=== PATIENT | female | born 1990 | race Caucasian/White ===

== ENCOUNTER → 2022-06-04 | Outpatient (CLI) | payer BC, SELFPAY | END | disposition home or self-care (01) | PROVIDERS: Visit Provider Physician Assistant | DX: J02.9 Acute pharyngitis, unspecified (principal) | CPT/HCPCS: 87070; 87077 ==

== ENCOUNTER → 2022-06-12 | Outpatient (CLI) | payer BC, SELFPAY ==
--- NOTE | 2022-06-12 13:00 | MRI_ITS ---
STUDY: MRI LEFT KNEE REASON FOR EXAM: Female, 32 years old. Fall last summer. Catching and popping in knee. TECHNIQUE: Standardized fat and water weighted pulse sequences were obtained in all 3 orthogonal planes. COMPARISON: None. FINDINGS: Normal medial meniscus. Normal hyaline cartilage of the medial femorotibial compartment. Normal medial femoral condyle and tibial plateau. Normal medial collateral ligamentous complex (MCL). Normal distal semimembranosus, gracilis and semitendinosus tendons. Normal lateral meniscus. Normal hyaline cartilage of the lateral femorotibial compartment. Normal lateral femoral condyle and tibial plateau. Normal proximal tibiofibular articulation. Normal lateral collateral (fibular) ligament. Normal popliteus tendon. Normal biceps femoris tendon. Normal anterior cruciate ligament (ACL). Normal posterior cruciate ligament (PCL). Normal congruent patellofemoral articulation. Normal hyaline cartilage of the patellofemoral compartment. Normal medial and lateral patellar retinaculum. Normal quadriceps tendon. Normal patellar tendon. Normal Hoffa''s fat pad. Deep infrapatellar bursitis (sagittal series 4 image 11). Small joint effusion with medial plica (axial series 2 images 10-14 Superficial prepatellar skin defect which may be postsurgical or posttraumatic (sagittal series 4 images 10 and 13). The otherwise visualized osseous structures are unremarkable. MRI/Lower Ext Joint Only (Routine) IMPRESSION: Deep infrapatellar bursitis Small joint effusion with medial plica. Deep infrapatellar bursitis. Superficial abnormality in the prepatellar soft tissues which may be secondary to trauma or surgery. No meniscal or ligamentous pathology. Electronically Signed: Mitchell Solorio, at 15:52 EDT ,
== END | disposition home or self-care (01) ==
PROVIDERS: PCP Family Medicine; Referring Provider Student in an Organized Health Care Education/Training Program; Visit Provider Student in an Organized Health Care Education/Training Program
DX: S83.8X2A Sprain of other specified parts of left knee, initial encounter (principal)
CPT/HCPCS: 73721

== ENCOUNTER → 2023-03-11 | Outpatient (CLI) | payer BC, SELFPAY ==
--- OUTSIDE RECORDS SUMMARY | 2023-03-11 07:04 | XMS RPT_ITS | CCD ---
Author Name Unknown Address [address] [place] [address] Organization [facility] Care Team Providers Care [employer] Driver Name Role Phone Kalli Gilmore Primary Care Provider [phone] John RIVERS, Gricelda S Primary Care Provider John RIVERS, Gricelda S Primary Care Provider John RIVERS, Gricelda S Primary Care Provider JOHN, GRICELDA Primary Care Unavailable JOHN, GRICELDA Attending Unavailable JOHN, GRICELDA Referring Unavailable LILO TORREZ Attending Unavailable JOHN, GRICELDA Primary Care Unavailable JOHN, GRICELDA Attending Unavailable JOHN, GRICELDA Primary Care Unavailable JOHN, GRICELDA Referring Unavailable JOHN, GRICELDA Attending Unavailable JOHN, GRICELDA Primary Care Unavailable JOHN, GRICELDA Referring Unavailable JOHN, GRICELDA Attending Unavailable JOHN, GRICELDA Referring Unavailable JOHN, GRICELDA Attending Unavailable JOHN, GRICELDA Referring Unavailable JOHN, GRICELDA Attending Unavailable JOHN, GRICELDA Admitting Unavailable JOHN, GRICELDA Primary Care Unavailable JOHN, GRICELDA Referring Unavailable MADAN AGUIAR Attending Unavailable JOHN, GRICELDA Referring Unavailable JOHN, GRICELDA Referring Unavailable JOHN, GRICELDA Referring Unavailable JOHN, GRICELDA Attending Unavailable JOHN, GRICELDA Referring Unavailable JOHN, GRICELDA Referring Unavailable JOHN, GRICELDA Referring Unavailable JOHN, GRICELDA Attending Unavailable JOHN, GRICELDA Referring Unavailable JOHN, GRICELDA Referring Unavailable JOHN, GRICELDA Referring Unavailable JOHN, GRICELDA Referring Unavailable JOHN, GRICELDA Primary Care Unavailable JONH, GRICELDA Referring Unavailable JOHN, GRICELDA Attending Unavailable JOHN, GRICELDA Primary Care Unavailable JOHN, GRICELDA Referring Unavailable JOHN, GRICELDA Attending Unavailable JOHN, GRICELDA Primary Care Unavailable JOHN, GRICELDA Referring Unavailable JOHN, GRICELDA Attending Unavailable GRICELDA LOPEZ Referring Unavailable GRICELDA LOPEZ Referring Unavailable LILO TORREZ Attending Unavailable Gricelda Lopez MD Primary Care Provider [phone] Allergies Allergy Classification Reported Allergen(s) Allergy Type Date of Onset Reaction(s) Facility Cetirizine (1 source) Cetirizine Drug Allergy 0 [facility] Work Phone: Corticosteroids (1 source) Beclomethasone Drug Allergy 9 [facility] Work Phone: (4 sources) Seasonal allergy Propensity to adverse reactions to substance 9 [place] (7 sources) Beclomethasone Drug Allergy 9 [place] (12 sources) Cetirizine Drug Allergy 0 [place] (11 sources) Other Propensity to adverse reactions 9 [facility] Medications Current Medications Medication Drug Class(es) Dates Sig (Normalized) Sig (Original) [id number] 200 actuat albuterol 0.09 mg/actuat metered dose inhaler (20 sources) beta2-Adrenergic Agonist Start: 08-08-2022 End: 10-27-2023 take 2 puff(s) by inhalation every four hours as needed for wheezing albuterol 108 (90 Base) MCG/ACT inhaler Indications: Moderate persistent asthma without complication Inhale 2 puffs every 4 hours as needed for wheezing. 18 g 1 10/27/2022 10/27/2023 Active Problems Active Problems Problem Classification Problem Date Documented Date Episodic/Chronic Acute and chronic tonsillitis (4 sources) Chronic tonsillitis; Translations: [Chronic tonsillitis] Onset: 08-26-2022 08-25-2022 Chronic Asthma (20 sources) Uncomplicated moderate persistent asthma; Translations: [Moderate persistent asthma, uncomplicated] Onset: 08-30-2020 08-30-2020 Chronic Conduction disorders (1 source) Right bundle branch block; Translations: [RBBB] Chronic Headache; including migraine (4 sources) Refractory migraine with aura; Translations: [Persistent migraine aura without cerebral infarction, intractable, without status migrainosus] Onset: 08-26-2022 08-26-2022 Chronic Heart valve disorders (20 sources) Mitral valve prolapse; Translations: [Mitral valve regurgitation] Onset: 08-30-2020 Resolved: 10-04-2014 10-04-2014 Chronic Mycoses (3 sources) Candidal stomatitis; Translations: [Candidiasis of mouth] Onset: 01-09-2022 Episodic Nausea and vomiting (1 source) Nausea; Translations: [Nausea] Episodic Other upper respiratory disease (12 sources) Seasonal allergy; Translations: [Other seasonal allergic rhinitis] Onset: 08-30-2020 08-30-2020 Chronic Spondylosis; intervertebral disc disorders; other back problems (1 source) Chronic low back pain; Translations: [Lumbago with sciatica, left side] Episodic Unclassified (2 sources) PT Treatment; Translations: [PT Treatment] Onset: 03-14-2022 Past or Other Problems Problem Classification Problem Date Documented Date Episodic/Chronic Acute and chronic tonsillitis (5 sources) Acute tonsillitis; Translations: [Acute tonsillitis, unspecified] Onset: 06-19-2022 Episodic Cardiac dysrhythmias (1 source) Palpitations; Translations: [Palpitation] Episodic Nonspecific chest pain (3 sources) Tight chest; Translations: [Tightness in chest] Episodic Other connective tissue disease (11 sources) Cramp in lower limb; Translations: [Cramp and spasm] Onset: 10-25-2021 12-14-2021 Episodic Other infections; including parasitic (1 source) H/O: viral illness; Translations: [History of 2019 novel coronavirus disease (COVID-19)] Episodic Other lower respiratory disease (2 sources) Dyspnea; Translations: [SOB (shortness of breath)] Episodic Other lower respiratory disease (2 sources) Dyspnea on exertion; Translations: [PEPE (dyspnea on exertion)] Episodic Other lower respiratory disease (1 source) Wheezing; Translations: [Wheezing] Episodic Other non-traumatic joint disorders (13 sources) Pain in left knee; Translations: [Pain in joint, lower leg] Onset: 04-03-2022 04-04-2022 Episodic Other screening for suspected conditions (not mental disorders or infectious disease) (1 source) Electrocardiogram abnormal; Translations: [Abnormal EKG] Episodic Results Test Name Value Interpretation Reference Range Facil ity Vital Signs Date Time Vital Sign Value Performing Clinician Faci lity 09-04-2022 10:23-0400 Body height 178.4 cm Gricelda Lopez MD Work Phone: [facility] 09-04-2022 10:23-0400 Body mass index (BMI) [Ratio] 30.57 kg/m2 Gricelda Lopez MD Work Phone: [facility] 09-04-2022 10:23-0400 Body temperature 98.6 [degF] Gricelda Lopez MD Work Phone: [facility] 09-04-2022 10:23-0400 Body weight 97.34 kg Gricelda Lopez MD Work Phone: [facility] 09-04-2022 10:23-0400 Diastolic blood pressure 87 mm[Hg] Gricelda Lopez MD Work Phone: [facility] 09-04-2022 10:23-0400 Heart rate 80 /min Gricelda oLpez MD Work Phone: [facility] 09-04-2022 10:23-0400 SaO2% (BldA) [Mass fraction] 97 % Gricelda Lopez MD Work Phone: [facility] 09-04-2022 10:23-0400 Systolic blood pressure 124 mm[Hg] Gricelda Dillon Work Phone: [facility] 08-26-2022 08:19-0400 Body height 180.3 cm Madan Aguiar MD Work Phone: [facility] 08-26-2022 08:19-0400 Body mass index (BMI) [Ratio] 29.57 kg/m2 Madan Aguiar MD Work Phone: [facility] 08-26-2022 08:19-0400 Body weight 96.16 kg Madan Aguiar MD Work Phone: [facility] 06-19-2022 14:14-0400 Body height 180.3 cm Gricelda Lopez MD Work Phone: [facility] 06-19-2022 14:14-0400 Body mass index (BMI) [Ratio] 28.87 kg/m2 Gricelda Lopez MD Work Phone: [facility] 06-19-2022 14:14-0400 Body temperature 98.4 [degF] Gricelda Lopez MD Work Phone: [facility] 06-19-2022 14:14-0400 Body weight 93.89 kg Gricelda Lopez MD Work Phone: [facility] 06-19-2022 14:14-0400 Diastolic blood pressure 83 mm[Hg] Gricelda Lopez MD Work Phone: [facility] 06-19-2022 14:14-0400 Heart rate 88 /min Gricelda Lopez MD Work Phone: [facility] 06-19-2022 14:14-0400 SaO2% (BldA) [Mass fraction] 97 % Gricelda Lopez MD Work Phone: [facility] 06-19-2022 14:14-0400 Systolic blood pressure 120 mm[Hg] Gricelda Dillon Work Phone: [facility] Encounters Encounter Date Encounter Type Care Provider Facility Start: 02-18-2023 Orders Only Gricelad Rodriguez on Work Phone: [facility] Procedures Date Procedure Procedure Detail Performing Clinician Start: 09-04-2022 Microscopic observat ion [Identifier] in Cervix by Cyto stain Gay iRng MA Start: 09-26-2019 Ct thorax w/o contra st material Cecily Bradley Work Phone: Start: 01-19-2019 Echo tthrc r-t 2d w/wom-mode compl spec&colr d Kalli Gilmore Work Phone: Start: 11-08-2018 Radiologic exam ches t 2 views eCcily Bradley Work Phone: Plan of Treatment Date Care Activity Detail Author Start: 2057 Pneumococcal 0-64 years Vaccine (2 of 2 - PPSV23) Pneumococcal 0-64 years Vaccine (2 of 2 - PPSV23) [facility] Work Phone: Start: 2052 RSV Immunization aged 60 or older (1 - 1-dose 60+ series) RSV Immunization aged 60 or older (1 - 1-dose 60+ series) [facility] Start: 2042 Zoster Vaccines (1 of 2) Zoster Vaccines (1 of 2) [facility] Start: 10-14-2027 DTaP/Tdap/Td vaccine (9 - Td or Tdap) DTaP/Tdap/Td vaccine (9 - Td or Tdap) [facility] Work Phone: Start: 10-14-2027 DTaP/Tdap/Td vaccine (9 - Td) DTaP/Tdap/Td vaccine (9 - Td) [place] Start: 10-14-2027 DTaP/Tdap/Td Vaccines (9 - Td or Tdap) DTaP/Tdap/Td Vaccines (9 - Td or Tdap) [facility] Start: 09-04-2025 Screening for malignant neoplasm of cervix [facility] Start: 09-10-2023 End: 09-10-2023 Patient encounter procedure [facility] Start: 10-31-2022 COVID-19 Vaccine ( season) COVID-19 Vaccine ( season) [facility] Start: 10-31-2022 Influenza vaccination Influenza Vaccine (#1) [facility] Start: 09-04-2022 End: 09-05-2023 CHLAMYDIA/N.GONORRHOEAE AND T. VAGINALIS RNA, QL TMA ([facility]) Chlamydia/N.Gonorrhoeae and T. Vaginalis RNA, QL TMA ([facility]) Microbiology Routine Cervical smear, as part of routine gynecological examination Expected: 09/04/2022 (Approximate), Expires: 09/05/2023 [facility] Immunizations Immunization Date Immunization Notes Care Provider [facility] 12-02-2021 influenza, seasonal, injectable Gricelda Lopez MD Work Phone: [facility] 12-02-2021 influenza virus vacc ine, unspecified formulation Gricelda Lopez MD Work Phone: [facility] 11-27-2020 influenza virus vacc ine, unspecified formulation Gricelda Lopez MD Work Phone: [facility] 11-27-2020 influenza, seasonal, injectable, preservative free Gricelda Lopez MD Work Phone: [facility] 08-30-2020 pneumococcal polysaccharide vaccine, 23 valent Silvadavid Wilder RATE CLERK - PETROGRAPHY TEACHER Work Phone: [facility] 2020 COVID-19, Moderna, P F, 100mcg/0.5mL Silva Lalley RATE CLERK - PETROGRAPHY TEACHER Work Phone: [facility] Work Phone: 02-29-2020 COVID-19, Moderna, P F, 100mcg/0.5mL Silva Yumilley RATE CLERK - PETROGRAPHY TEACHER Work Phone: [facility] Work Phone: 12-20-2019 influenza virus vacc ine, unspecified formulation Gricelda Lopez MD Work Phone: [facility] 11-23-2018 influenza, injectabl e, quadrivalent, preservative free Kalli Hindsnz [facility] 12-28-2017 influenza virus vacc ine, unspecified formulation [facility], [place] 12-28-2017 influenza, injectabl e, quadrivalent, preservative free Gricelda Lopez MD Work Phone: [facility] 10-13-2017 poliovirus vaccine, inactivated [facility], [place] 10-13-2017 tetanus toxoid, redu altagracia diphtheria toxoid, and acellular pertussis vaccine, adsorbed [facility] 11-13-2016 Influenza Vaccine, unspecified formulation [facility], [place] 11-13-2016 influenza virus vacc ine, unspecified formulation Gricelda Lopez MD Work Phone: [facility] 11-13-2016 influenza, seasonal, injectable Gricelda Lopez MD Work Phone: [facility] 12-15-2009 HPV, unspecified formulation [facility] 12-15-2009 meningococcal polysaccharide (groups A, C, Y and W-135) diphtheria toxoid conjugate vaccine (MCV4P) [facility] 03-06-2009 novel influenza-H1N1 -09, preservative-free, injectable Gricelda Lopez MD Work Phone: [facility] 06-10-2008 HPV, unspecified formulation [facility] 04-12-2008 HPV, unspecified formulation [facility] 04-12-2008 varicella virus vaccine [facility], [place] 10-12-2007 meningococcal polysaccharide (groups A, C, Y and W-135) diphtheria toxoid conjugate vaccine (MCV4P) [facility] 10-12-2007 tetanus toxoid, redu altagracia diphtheria toxoid, and acellular pertussis vaccine, adsorbed [facility], [place] 04-28-2005 hepatitis B vaccine, adult dosage Gricelda Lopez MD Work Phone: [facility] 04-28-2005 hepatitis B vaccine, pediatric or pediatric/adolescent dosage Gricelda Lopez MD Work Phone: [facility] 04-28-2005 hepatitis B vaccine, unspecified formulation [facility] 04-28-2005 tetanus toxoid, redu altagracia diphtheria toxoid, and acellular pertussis vaccine, adsorbed Gricelda Lopez MD Work Phone: [facility] 11-11-2004 hepatitis B vaccine, adult dosage Gricelda Lopez MD Work Phone: [facility] 11-11-2004 hepatitis B vaccine, pediatric or pediatric/adolescent dosage Gricelda Lopez MD Work Phone: [facility] 11-11-2004 hepatitis B vaccine, unspecified formulation [facility] 09-16-2004 hepatitis B vaccine, adult dosage Gricelda Lopez MD Work Phone: [facility] 09-16-2004 hepatitis B vaccine, pediatric or pediatric/adolescent dosage Gricelda Lopez MD Work Phone: [facility] 09-16-2004 hepatitis B vaccine, unspecified formulation [facility] 10-18-1997 diphtheria, tetanus toxoids and acellular pertussis vaccine [facility] 10-18-1997 measles, mumps and rubella virus vaccine [facility] 10-18-1997 poliovirus vaccine, inactivated [facility] 03-23-1996 varicella virus vaccine [facility] 06-25-1993 diphtheria, tetanus toxoids and acellular pertussis vaccine [facility], [place] 06-25-1993 haemophilus influenz ae type b vaccine, conjugate unspecified formulation Gricelda Lopez MD Work Phone: [facility] 06-25-1993 Hib, unspecified [facility] 06-25-1993 measles, mumps and rubella virus vaccine [facility] 06-25-1993 poliovirus vaccine, inactivated [facility], [place] 1992 diphtheria, tetanus toxoids and acellular pertussis vaccine [facility], [place] 1992 haemophilus influenz ae type b vaccine, conjugate unspecified formulation Gricelda Lopez MD Work Phone: [facility] 1992 Hib, unspecified [facility], [place] 1992 diphtheria, tetanus toxoids and acellular pertussis vaccine [facility], [place] 1992 haemophilus influenz ae type b vaccine, conjugate unspecified formulation Gricelda Lopez MD Work Phone: [facility] 1992 Hib, unspecified [facility], [place] 1992 poliovirus vaccine, inactivated [facility], [place] 1992 diphtheria, tetanus toxoids and acellular pertussis vaccine Cecily [place], [place] 1992 haemophilus influenz ae type b vaccine, conjugate unspecified formulation Gricelda Lopez MD Work Phone: [facility] 1992 Hib, unspecified Cecily [place], [place] 1992 poliovirus vaccine, inactivated [facility] [place] Payers Date Payer Category Payer Unknown [employer] [id number] 2018-Present [address] [place] [address] Commercial [id number] 2016 Unknown BCBS BC[place] - [place] P PO xxxxxxxxxxxx 2016-Present [address] [place] [address] xxxxxxxxxxxx [id number] 2016 Unknown BC[place] P PO [id number] 2016-Present [address] [place] [address] [id number] 2016 Unknown [id number] Social History Date Type Detail Facility Start: 11-08-2018 End: 06-19-2022 Tobacco smoking status NHIS Former smoker [place] End: 03-02-2015 History of tobacco use Current smoker [place] End: 03-02-2015 History of tobacco use Cigarette Smoker [place] Start: 11-08-2018 End: 09-04-2022 Alcohol intake Yes [place] Start: 12-16-2016 Tobacco Comment Occasional cig arette for less than 1 year [place] Start: 12-16-2016 Alcohol Comment 6-8 drinks per month [facility] Start: 1990 Sex Assigned At Female [facility] Start: 01-20-2019 End: 06-19-2022 Tobacco use and exposure Never used [facility] Start: 01-20-2019 End: 09-04-2022 Alcohol intake Current drinker of alcohol (finding) [facility] Exposure to SARS-CoV -2 (event) Yes [facility] Start: 08-30-2020 End: 09-04-2022 Alcohol intake [facility] Work Phone: Start: 06-09-2022 End: 06-19-2022 Exposure to SARS-CoV-2 (event) Not sure [facility] History of tobacco use Passive smoker [facility] Start: 12-19-2021 Gender identity Identifies as female gender (finding) [facility] Start: 12-19-2021 Sexual orientation Choose not to dis close [facility] Within the last year , have you been afraid of your partner or ex-partner? Patient refused [facility] Are you now , , , , never or living with a partner? [facility] How often to you hav e a drink containing alcohol? 2-4 times a month [facility] How many standard dr inks containing alcohol do you have on a typical day? 1 or 2 [facility] How often do you hav e 6 or more drinks on 1 occasion? Never [facility] How hard is it for y ou to pay for the very basics like food, housing, medical care, and heating Not very hard [facility] Do you feel stress - tense, restless, nervous, or anxious, or unable to sleep at night because your mind is troubled all the time - these days [OSQ] Only a little [facility] (I/We) worried wheth er (my/our) food would run out before (I/we) got money to buy more. Never true [facility] In the past 12 month s, was there a time when you were not able to pay the mortgage or rent on time? No [facility] Start: 09-04-2022 Alcohol Comment occasional [facility] Clinical Notes 06-19-2022 to 10-15-2022 Telephone Encounter - Adeline Gregory CMA - 10/15/2022 3:29 PM EDTTelephone Encounter - Adeline Gregory CMA - 10/15/2022 3:29 PM EDTGaidan Lopez MD - 09/04/2022 10:20 AM EDT Note Date & Type Note Facility 10-15-2022 Telephone encount er Note See patient message dated 10/15/22. [facility] 10-15-2022 Miscellaneous Notes Formattin g of this note might be different from the original. See patient message dated 10/15/22. [employer] requesting Generic- For Albuterol documented in this encounter [facility] 09-05-2022 Telephone encount er Note [employer] requesting Generic- For Albuterol [facility] 09-04-2022 Evaluation + Plan note Associated Problem(s): Moderate persistent asthma without complication Chronic, stable Tolerates the Breo and Albuterol Needs a refill on the albuterol Check the labs Adjust the dose as indicated [facility] 09-04-2022 Miscellaneous Notes Associate d Problem(s): Moderate persistent asthma without complication Chronic, stable Tolerates the Breo and Albuterol Needs a refill on the albuterol Check the labs Adjust the dose as indicated documented in this encounter [facility] 09-04-2022 History of Presen t illness Narrative Subjective Patient ID: Kallie Jasmine is a 32 y.o. female who presents for Annual Exam (Pt would like pap done today./Pt is not fasting. /Would like allergy removed- had a hard time filling her Breo inhaler). Previous abnormal paps none Past STD none [facility] 6 Negative HPV yes. Had the vaccines Last pap 2019 Gynecologic Exam The patient's primary symptoms include vaginal bleeding and vaginal discharge. The patient's pertinent negatives include no genital itching, missed menses or pelvic pain. The pain is mild. She is . Associated symptoms include constipation and painful intercourse. Pertinent negatives include no diarrhea. Review of Systems Constitutional: Negative for activity change and unexpected weight change. Respiratory: Negative for chest tightness and shortness of breath. Gastrointestinal: Positive for constipation. Negative for blood in stool and diarrhea. Genitourinary: Positive for vaginal discharge. Negative for missed menses and pelvic pain. Objective Physical Exam Vitals and nursing note reviewed. Constitutional: General: She is not in acute distress. Appearance: She is not ill-appearing or toxic-appearing. HENT: Right Ear: Tympanic membrane normal. Left Ear: Tympanic membrane normal. Nose: Nose normal. Mouth/Throat: Pharynx: No oropharyngeal exudate or posterior oropharyngeal erythema. Eyes: General: No scleral icterus. Conjunctiva/sclera: Conjunctivae normal. Pupils: Pupils are equal, round, and reactive to light. Neck: Vascular: No carotid bruit. Cardiovascular: Rate and Rhythm: Normal rate and regular rhythm. Heart sounds: Normal heart sounds. No murmur heard. Pulmonary: Effort: Pulmonary effort is normal. No respiratory distress. Breath sounds: Normal breath sounds. Abdominal: General: Bowel sounds are normal. There is no distension. Tenderness: There is no abdominal tenderness. There is no right CVA tenderness or left CVA tenderness. Genitourinary: General: Normal vulva. Exam position: Lithotomy position. Pubic Area: No rash. Doug stage (genital): 5. Labia: Right: No lesion. Left: No lesion. Urethra: No urethral lesion. Vagina: Normal. Cervix: Normal. Uterus: Normal. Adnexa: Right: No tenderness. Left: No tenderness. Rectum: Normal. Musculoskeletal: Cervical back: Neck supple. Lymphadenopathy: Cervical: No cervical adenopathy. Lower Body: No right inguinal adenopathy. No left inguinal adenopathy. Skin: General: Skin is warm and dry. Capillary Refill: Capillary refill takes less than 2 seconds. Coloration: Skin is not jaundiced. Neurological: Mental Status: She is alert and oriented to person, place, and time. Cranial Nerves: No cranial nerve deficit. Psychiatric: Thought Content: Thought content normal. Assessment/Plan Problem List Items Addressed This Visit Respiratory Moderate persistent asthma without complication Chronic, stable Tolerates the Breo and Albuterol Needs a refill on the albuterol Check the labs Adjust the dose as indicated Relevant Medications albuterol 108 (90 Base) MCG/ACT inhaler Other Visit Diagnoses Routine adult health maintenance - Primary Healthy, stable Relevant Orders Hepatitis C antibody Lipid panel Comprehensive metabolic panel Cervical smear, as part of routine gynecological examination Stable Exposure to STD Relevant Orders Pap Smear Chlamydia/N.Gonorrhoeae and T. Vaginalis RNA, QL TMA (e-Tag) documented in this encounter [facility] 08-26-2022 Note Assessment and Recommendations: Kallie Jasmine is a 32 y.o. female here for evaluation of tonsil issues. -Recurrent tonsillitis, tonsil stones: does not meet criteria for recurrent tonsillitis but does meet criteria for tonsil stones. Has trialed conservative measures. Discussed options including observation versus tonsillectomy she will think about options -Vertigo secondary to BPPV versus vestibular migraine: triggers list given, start diary. If symptoms persistent would start with vestibular therapy -Patient will message me if not improved . Otolaryngology / Head and Neck Surgery Clinic Note Kallie Jasmine is a 32 y.o. female who presents for evaluation of chief complaint of tonsil issues. Patient referred by her PCP Gricelda Lopez last seen on 06/19/2022. Seen for sore throat/tonsillitis. Monospot negative. Has had recurrent tonsil issues for which she is sent for evaluation. Was also noted to have extremely large tonsils. No strep testing available. Patient states over the past year she has had 4 episodes of strep throat. Nothing in the years before that. States that every time she does get sick of tonsils get very red and swollen. Of note she states that her right tonsil is always larger than her left. No voice issues or dysphagia unless she is sick. No issues with snoring or sleep disordered breathing. Does get tonsil stones regularly; states that she has tried salt water gargles and picking her tonsil stones out but her tonsil stones are very bothersome and cause halitosis. No tobacco. Occasional etoh. No family history of head or neck cancer or lymphoma. Also has vertigo lasting seconds to a day. Takes meclizine which helps. Does have migraines and headaches light and sound sensitivity. PMH: Past Medical History: Diagnosis Date Asthma Heart palpitations Cardiac work up 2008 [facility] Menorrhagia Controlled prev with OCP; pt choice to d/c OCP MVP (mitral valve prolapse) echo: 06/03/2013 : no mvp / tr MR; echo 12/2018EF 57%/ mild MVP 1+ MR Seasonal allergies Allergies: Allergies Allergen Reactions Beclomethasone Cetirizine Head-to-toe Itching when she STOPS taking it Other Medications: Current Outpatient Medications: albuterol 108 (90 Base) MCG/ACT inhaler, Inhale 2 puffs every 4 hours as needed for wheezing., Disp: 18 g, Rfl: 1 ascorbic acid (Vitamin C) 500 MG ER capsule, Take 1 tablet by mouth., Disp: , Rfl: cholecalciferol (Vitamin D-3) 25 MCG (1000 UT) capsule, , Disp: , Rfl: fluticasone (Flonase) 50 MCG/ACT nasal spray, 1 spray Daily as needed., Disp: , Rfl: Fluticasone Furoate-Vilanterol (Breo Ellipta) 200-25 MCG/ACT aerosol powder , Inhale 1 puff daily., Disp: 180 each, Rfl: 3 hydrOXYzine HCl (Atarax) 25 MG tablet, Take 25 mg by mouth., Disp: , Rfl: levocetirizine (Xyzal) 5 MG tablet, Take 5 mg by mouth Nightly., Disp: , Rfl: meclizine (Antivert) 25 MG tablet, Take 50 mg by mouth Daily as needed., Disp: , Rfl: meloxicam (Mobic) 15 MG tablet, TAKE 1 TABLET BY MOUTH EVERY DAY WITH FOOD, Disp: , Rfl: montelukast (Singulair) 10 MG tablet, Take 1 tablet (10 mg) by mouth Nightly., Disp: 90 tablet, Rfl: 3 Specialty Vitamins Products (Biotin Plus Keratin) 52457-015 MCG-MG tablet, , Disp: , Rfl: PSH: Past Surgical History: Procedure Laterality Date LYMPHADENECTOMY Age 6; Neck FH: Family History Problem Relation Name Age of Onset Heart attack Maternal Grandmother Alcohol abuse Father Depression Mother Heart disease Paternal Grandmother Cancer Other pat great aunt colon Heart disease Maternal Grandfather Cancer Father's Brother skin Cancer Father's Sister skin cancer Cancer Maternal Grandmother cancer-colon 70s Other ([id number]) Brother heart stent Cancer Other pat great aunt colon Cancer Paternal Grandmother colon cancer SH: Social History Socioeconomic History Marital status: Spouse name: Not on file Number of children: Not on file Years of education: Not on file Highest education level: Not on file Occupational History Not on file Tobacco Use Smoking status: Former Types: Cigarettes Quit date: 03/02/2015 Years since quittin.4 Passive exposure: Past Smokeless tobacco: Never Vaping Use Vaping Use: Never used Passive vaping exposure: Yes Substance and Sexual Activity Alcohol use: Yes Alcohol/week: 1.0 standard drink of alcohol Types: 1 Glasses of wine per week Drug use: No Sexual activity: Not on file Comment: Monogamous; feels safe Other Topics Concern Not on file Social History Narrative Not on file Social Determinants of Health Financial Resource Strain: Not on file Food Insecurity: Not on file Transportation Needs: Not on file Physical Activity: Not on file Stress: Not on file Social Connections: Not on file Intimate Partner Violence: Not on file Housing Sta (more content not included)... [facility] 08-26-2022 History of Presen t illness Narrative Assessment and Recommendations: Kallie Jasmine is a 32 y.o. female here for evaluation of tonsil issues. -Recurrent tonsillitis, tonsil stones: does not meet criteria for recurrent tonsillitis but does meet criteria for tonsil stones. Has trialed conservative measures. Discussed options including observation versus tonsillectomy she will think about options -Vertigo secondary to BPPV versus vestibular migraine: triggers list given, start diary. If symptoms persistent would start with vestibular therapy -Patient will message me if not improved . Otolaryngology / Head and Neck Surgery Clinic Note Kallie Jasmine is a 32 y.o. female who presents for evaluation of chief complaint of tonsil issues. Patient referred by her PCP Gricelda Lopez last seen on 06/19/2022. Seen for sore throat/tonsillitis. Monospot negative. Has had recurrent tonsil issues for which she is sent for evaluation. Was also noted to have extremely large tonsils. No strep testing available. Patient states over the past year she has had 4 episodes of strep throat. Nothing in the years before that. States that every time she does get sick of tonsils get very red and swollen. Of note she states that her right tonsil is always larger than her left. No voice issues or dysphagia unless she is sick. No issues with snoring or sleep disordered breathing. Does get tonsil stones regularly; states that she has tried salt water gargles and picking her tonsil stones out but her tonsil stones are very bothersome and cause halitosis. No tobacco. Occasional etoh. No family history of head or neck cancer or lymphoma. Also has vertigo lasting seconds to a day. Takes meclizine which helps. Does have migraines and headaches light and sound sensitivity. PMH: Past Medical History: Diagnosis Date Asthma Heart palpitations Cardiac work up 2008 [facility] Menorrhagia Controlled prev with OCP; pt choice to d/c OCP MVP (mitral valve prolapse) echo: 06/03/2013 : no mvp / tr MR; echo 12/2018EF 57%/ mild MVP 1+ MR Seasonal allergies Allergies: Allergies Allergen Reactions Beclomethasone Cetirizine Head-to-toe Itching when she STOPS taking it Other Medications: Current Outpatient Medications: albuterol 108 (90 Base) MCG/ACT inhaler, Inhale 2 puffs every 4 hours as needed for wheezing., Disp: 18 g, Rfl: 1 ascorbic acid (Vitamin C) 500 MG ER capsule, Take 1 tablet by mouth., Disp: , Rfl: cholecalciferol (Vitamin D-3) 25 MCG (1000 UT) capsule, , Disp: , Rfl: fluticasone (Flonase) 50 MCG/ACT nasal spray, 1 spray Daily as needed., Disp: , Rfl: Fluticasone Furoate-Vilanterol (Breo Ellipta) 200-25 MCG/ACT aerosol powder , Inhale 1 puff daily., Disp: 180 each, Rfl: 3 hydrOXYzine HCl (Atarax) 25 MG tablet, Take 25 mg by mouth., Disp: , Rfl: levocetirizine (Xyzal) 5 MG tablet, Take 5 mg by mouth Nightly., Disp: , Rfl: meclizine (Antivert) 25 MG tablet, Take 50 mg by mouth Daily as needed., Disp: , Rfl: meloxicam (Mobic) 15 MG tablet, TAKE 1 TABLET BY MOUTH EVERY DAY WITH FOOD, Disp: , Rfl: montelukast (Singulair) 10 MG tablet, Take 1 tablet (10 mg) by mouth Nightly., Disp: 90 tablet, Rfl: 3 Specialty Vitamins Products (Biotin Plus Keratin) 93436-987 MCG-MG tablet, , Disp: , Rfl: PSH: Past Surgical History: Procedure Laterality Date LYMPHADENECTOMY Age 6; Neck FH: Family History Problem Relation Name Age of Onset Heart attack Maternal Grandmother Alcohol abuse Father Depression Mother Heart disease Paternal Grandmother Cancer Other pat great aunt colon Heart disease Maternal Grandfather Cancer Father's Brother skin Cancer Father's Sister skin cancer Cancer Maternal Grandmother cancer-colon 70s Other ([id number]) Brother heart stent Cancer Other pat great aunt colon Cancer Paternal Grandmother colon cancer SH: Social History Socioeconomic History Marital status: Spouse name: Not on file Number of children: Not on file Years of education: Not on file Highest education level: Not on file Occupational History Not on file Tobacco Use Smoking status: Former Types: Cigarettes Quit date: 03/02/2015 Years since quittin.4 Passive exposure: Past Smokeless tobacco: Never Vaping Use Vaping Use: Never used Passive vaping exposure: Yes Substance and Sexual Activity Alcohol use: Yes Alcohol/week: 1.0 standard drink of alcohol Types: 1 Glasses of wine per week Drug use: No Sexual activity: Not on file Comment: Monogamous; feels safe Other Topics Concern Not on file Social History Narrative Not on file Social Determinants of Health Financial Resource Strain: Not on file Food Insecurity: Not on file Transportation Needs: Not on file Physical Activity: Not on file Stress: Not on file Social Connections: Not on file Intimate Partner Violence: Not on file Housing Stability: Not on file Physical Exam: Constitutional: General: Patient is not in acute distress. Appearance: Patient is well-developed. Eyes: Conjunctiva/sclera: Conjunctivae normal. Pupils: Pupils are equal, round, and reactive to light. HENT: Jaw: No trismus. Nose: No nasal deformity, mucosal edema or rhinorrhea. Mouth: Mucous membranes are not pale, not dry and not cyanotic. No oral lesions. Pharynx: Uvula midline. No oropharyngeal exudate or uvula swelling. Tonsils: No tonsillar exudate. No abnormal masses or lesions. Tonsils 1-2+ bilaterally Thyroid: No significant thyromegaly. Trachea: Trachea and phonation normal. No tracheal deviation. Pulmonary: Effort: Pulmonary effort is normal. No respiratory distress. Breath sounds: No stridor. Musculoskeletal: Head: Normocephalic and atraumatic. Neck: No lymphadenopathy, trachea midline Skin: General: Skin is warm and dry. Findings: No erythema or rash. Neurological: Cranial Nerves: No cranial nerve deficit. Sensory: No sensory deficit. Coordination: Coordination normal. Psychiatric: Mood and Affect: Mood and affect normal. Cognition and Memory: Cognition and memory normal. documented in this encounter [facility] 08-26-2022 Instructions Madan Aguiar MD - 08/26/2022 8:30 AM EDT Post-Tonsillectomy Instructions Activity: Avoid strenuous activity, bending over, straining Diet: Soft diet for 2 weeks. Avoid crunchy/hard foods that can scrape the back of your throat and cause bleeding. Keep up hydration. If you become dehydrated the wound can become more painful as it dries out. Some people have bleeding after a tonsillectomy. Usually it happens 4 to 8 days after surgery, but it can occur any time up until about 3 weeks after your surgery. If you have bleeding: -Small amount of bleeding: Drink ice water and sit down and rest. -Large amount of bleeding or bleeding that does not stop: Go to the nearest emergency department. [facility] if possible. Prevent bleeding: Do the following to prevent or reduce the risk of bleeding from your tonsil areas: -Do not smoke or go to smoky areas after your surgery while your throat is healing. Smoke may cause your throat to start bleeding heavily. -Avoid using very hot water when taking a shower or bath, or washing your face -Avoid drinking liquids or eating foods that are hot, spicy, or have sharp edges (such as chips). -Avoid harsh gargling or tooth brushing. Gently brush your teeth and rinse your mouth as directed. Call Dr. Aguiar's Office at [phone] if there are questions. See the link below for an overview of migraine. Keep a journal of your symptoms to look for triggers in terms of your sleep, what you've eaten, time of the month, stress levels, and medications. The second link is additional information and a forum for patients with vestibular migraines (migraines that cause dizziness). Please take a look and see if the other patients' experiences are consistent with yours. [email or web address] f [email or web address]/ Food triggers ? Aged or ripened cheeses (examples: Cheddar, Gruy re, Emmenthaler, Stilton, Brie, Gouda, Ross, Parmesan, feta, surinder, Camembert) ? Foods containing large amounts of monosodium glutamate (MSG). foods often have large amounts of MSG. ? Smoked, cured, or processed meats such as segura, sausage, ham, salami, pepperoni, pickled garibay, bologna, chicken livers, and hot dogs ? Food prepared with meat tenderizer, soy sauce, vinegar (except white vinegar), or yeast extract; and food that has been fermented, pickled, or marinated ? Pea pods and pods of broad beans such as jeong and navy beans ? Onions, olives, pickles ? Alcohol (especially red wine, port, mani, Scotch, gin, and bourbon) ? Sour cream, yogurt, buttermilk ? Hot fresh bread, raised coffee cake, doughnuts ? Excessive aspartame (artificial sweetener) ? Chocolate, cocoa, carob ? Nuts, peanut butter ? Certain fruits, including figs, avocados, raisins, red plums, passion fruit, papaya, banana, and citrus fruit ? Excessive tea, coffee, cola Other triggers ? Hormonal fluctuations ? Barometric-pressure variations (weather changes) ? Sleep disturbance ? Stress ? Medications ? Eye strain (make sure you have a current prescription) ? Low blood sugar ? Cigarette or other smoke, perfumes Keep track of your day to day exposure to these triggers to look for a pattern of what makes your symptoms worse. documented in this encounter [facility] 08-26-2022 Miscellaneous Notes Addended by: MADAN AGUIAR on: 08/26/2022 09:07 AM Modules accepted: Level of Service documented in this encounter [facility] 08-26-2022 Note Addended by: MADAN AGUIAR on: 08/26/2022 09:07 AM Modules accepted: Level of Service [facility] 08-26-2022 Note Addended by: MADAN AGUIAR on: 08/26/2022 09:07 AM Modules accepted: Level of Service [facility] 08-18-2022 Telephone encount er Note Last appointment 06/19/2022 , Next appointment is 09/04/2022 Pended order to provider for review. [facility] 08-18-2022 Miscellaneous Notes Formattin g of this note might be different from the original. Last appointment 06/19/2022 , Next appointment is 09/04/2022 Pended order to provider for review. documented in this encounter [facility] 06-19-2022 History of Presen t illness Narrative Subjective Patient ID: Kallie Jasmine is a 32 y.o. 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 ). Was tested for [place] and it was negative. Hurts to move the tongue Sore Throat This is a recurrent problem. The current episode started in the past 7 days. The pain is worse on the right side. There has been no fever. The pain is at a severity of 6/10. The pain is moderate. Pertinent negatives include no coughing, ear pain, shortness of breath or trouble swallowing. Review of Systems Constitutional: Negative for chills and fever. HENT: Positive for postnasal drip and sore throat. Negative for ear pain, sinus pressure, sneezing and trouble swallowing. Respiratory: Negative for cough, shortness of breath and wheezing. Objective Physical Exam Vitals and nursing note reviewed. Constitutional: General: She is not in acute distress. Appearance: She is obese. She is not ill-appearing or toxic-appearing. HENT: Right Ear: Tympanic membrane normal. Left Ear: Tympanic membrane normal. Nose: Nose normal. No congestion or rhinorrhea. Mouth/Throat: Pharynx: Oropharyngeal exudate and posterior oropharyngeal erythema present. Comments: Tonsils are 2+, there are crypts and pus on both tonsils. The soft palate is normal and not tender. Neurological: Mental Status: She is alert. Assessment/Plan Problem List Items Addressed This Visit None Visit Diagnoses Acute tonsillitis, unspecified etiology - Primary Acute, uncontrolled Finished Augmentin Gargle, switch to doxycycline See ENT. Her tonsils are very large for a 32 year old Relevant Medications doxycycline (Vibramycin) 100 MG capsule Other Relevant Orders [facility] documented in this encounter [facility] documented in this encounter [facility] Work Phone: Evaluation note* Diagnosis Acute tonsillitis, unspecified etiology- Primary [facility] Diagnosis Nausea- Primary Nausea alone [facility] Diagnosis Chronic tonsillitis- Primary Acute tonsillitis, unspecified etiology Migraine aura, persistent, intractable [facility] Diagnosis Routine adult health maintenance- Primary Cervical smear, as part of routine gynecological examination Screening for malignant neoplasm of the cervix Moderate persistent asthma without complication [facility] Diagnosis Moderate persistent asthma without complication [facility] [place] [facility] Diagnosis Thrush, oral [facility] Consultation (Routine) - Authorized Specialty Diagnoses / Procedures Referred By Contac t Referred To Contact Otolaryngology Diagnoses Acute tonsillitis, unspecified etiology Procedures [place] [facility]PATIENT [facility] 60-74 MINUTES Gricelda Lopez MD [facility], [address] [place] [address] Madan Aguiar MD [address] [place] [address] [address] [place] [address] Referral ID Status Reason Start Date Expiration Date Visits Requested Visits Authorized [id number] Authorized Specialty Services Required 06/19/2022 06/19/2023 1 1 [facility] Assessments Diagnosis SOB (shortness of breath) Shortness of breath Tightness in chest Other chest pain Diagnosis Tightness in chest Other chest pain PEPE (dyspnea on exertion) Other dyspnea and respiratory abnormality SOB (shortness of breath) Shortness of breath Wheezing History of 2019 novel coronavirus disease (COVID-19) Diagnosis Tightness in chest Other chest pain PEPE (dyspnea on exertion) Other dyspnea and respiratory abnormality Abnormal EKG Nonspecific abnormal electrocardiogram (ECG) (EKG) RBBB Right bundle branch block Palpitation Palpitations Trace mitral regurgitation by prior echocardiogram Mitral valve disorders Advance Directives Documents on File Type Date Recorded Patient Learning And Development Associate Expl anation Advance Directives and Living Will Power of [employer] Documents on File Type Date Recorded Patient Learning And Development Associate Expl anation Advance Directives and Living Will Power of [employer] Documents on File Type Date Recorded Patient Learning And Development Associate Expl anation ACP-Advance Directive ACP-Power of [employer] Reason for Referral Status Reason Specialty Diagnoses / Procedures Referred By Contact Referred To Contact Authorized Radiology Diagnoses Tightness in chest PEPE (dyspnea on exertion) SOB (shortness of breath) Wheezing History of 2019 novel coronavirus disease (COVID-19) Procedures CT Chest WO Contrast Alessandra BradleySangeetaChary Mary, RATE CLERK - PETROGRAPHY TEACHER [address] [place] [address] Status Reason Specialty Diagnoses / Procedures Re ferred By Contact Referred To Contact Authorized Cardiology Diagnoses Tightness in chest PEPE (dyspnea on exertion) Abnormal EKG RBBB Palpitation Trace mitral regurgitation by prior echocardiogram Procedures Echocardiogram complete Kalli Gilmore MD [address] [place] [address], [address] [place] [address] Summary Purpose Family History No Family History Records FoundNo Family History Records Found Additional Source Comments INFORMATION SOURCE (unrecogn ized section and content) DATE CREATED AUTHOR AUTHOR'S ORGANIZ ATION 10/28/2022 [employer] [facility] Reason for Visit (unrecogniz ed section and content) Reason Onset Date Comments Med Refill 08/15/2022 Reason Comments New Patient Swollen tonsils and dizziness. Strep infections in May. Specialty Diagnoses / Procedures Referred By Contstephanie machuca Referred To Contact Otolaryngology Diagnoses Acute tonsillitis, unspecified etiology Procedures [place] [facility]PATIENT [facility] 60-74 MINUTES Gricelda Lopez MD [address] [place] [address], [address] [place] [address] Madan Aguiar MD [address] [place] [address] Rd [address] [place] [address] Referral ID Status Reason Start Date Expiration Date V isits Requested Visits Authorized [id number] Closed Specialty Services Required 06/19/2022 06/19/2023 1 1 Reason Comments Annual Exam Pt would like pap do ne today.Pt is not fasting. Would like allergy removed- had a hard time filling her Breo inhaler Care Teams (unrecognized sec tion and content) [employer] Driver Relationship Specialty Start Date End Date Gricelda Lopez MD [address], [address] [place] [address] PCP - General 10/17/19 [employer] Shuttle Driver Relationship Specialty Start Date End Date Gricelda Lopez MD [address], [address] [place] [address] PCP - General 10/17/19 [employer] Shuttle Driver Relationship Specialty Start Date End Date Gricelda Lopez MD [address], [address] [place] [address] PCP - General 10/17/19 [employer] Shuttle Driver Relationship Specialty Start Date End Date Gricelda Lopez MD [address], [address] [place] [address] PCP - General 10/17/19 [employer] Shuttle Driver Relationship Specialty Start Date End Date Gricelda Lopez MD [address], [address] [place] [address] PCP - General 10/17/19 [employer] Shuttle Driver Relationship Specialty Start Date End Date Gricelda Lopez MD [address] [place] [address] PCP General 10/17/19 FOR RECORDS PERTAINING TO PATIENTS WHO ARE OR HAVE BEEN ENROLLED IN A CHEMICAL DEPENDENCY/SUBSTANCEABUSE PROGRAM, SOME INFORMATION MAY BE OMITTED. This clinical summary was aggregated from multiple sources. Caution should be exercised in using it in the provision of clinical care. This summary normalizes information from multiple sources, and as a consequence, information in this document may materially change the coding, format and clinical context of patient data. In addition, data may be omitted in some cases. CLINICAL DECISIONS SHOULD BE BASED ON THE PRIMARY CLINICAL RECORDS. [facility] [employer] [facility]. provides no warranty or guarantee of the accuracy or completeness of information in this document.
[2023-03-11 08:13] LABS: Hematocrit 40.4 % (37-47); Hemoglobin 13.5 g/dL (12.0-15.0); Mean Corp Hgb Conc 33.4 g/dL (32-36); Mean Corpuscular Hgb 30.3 pg (27.0-32.0); Mean Corpuscular Volume 90.8 fL (81-99); Mean Platelet Vol. 10.3 fl (6.2-12.0); Platelet Count 257 K/mm3 (150-450); RBC Distribution Width CV 11.8 % (11.6-14.6); RBC Distribution Width SD 39.1 fl (35.1-43.9); Red Blood Count 4.45 M/mm3 (4.2-5.4); White Blood Count 5.7 K/mm3 (4.4-11.0)
[2023-03-11 09:08] LABS: ALB/GLOB Ratio 0.9 RATIO (0.9-2.4); AST(SGOT) 18 U/L (15-37); Alanine Aminotransfer ALT/SGPT 25 U/L (13-56); Albumin, Serum 3.4 g/dL (3.2-5.0); Alkaline Phosphatase 55 U/L (45-117); Anion Gap 6 (5-15); BUN 13 mg/dL (7-18); BUN/Creat Ratio 18.2 RATIO (10-20); Chloride 107 mmol/L (98-107); Cholesterol 168 mg/dL (200); Creatinine, Serum 0.71 mg/dL (0.55-1.02); EST Glomerular Filtration Rate 101 mL/min (>60); Est Glom Filt Rate - Afr Amer 123 mL/min (>60); Globulin 3.8 g/dL (2.2-4.2); Glucose 102 mg/dL (74-106); High Density Lipoprotein 39 mg/dL; Potassium 3.7 mmol/L (3.5-5.1); Protein, Total 7.2 g/dL (6.4-8.2); Sodium Level 140 mmol/L (136-145); Thyroid Stim Hormone (TSH) 2.54 uIU/mL (0.358-3.74); Triglycerides 143 mg/dL; Very Low Density Lipoprotein 29 mg/dL (5-40)
== END | disposition home or self-care (01) ==
LOC: LAB 07:01
PROVIDERS: PCP Nurse Practitioner Family; Referring Provider Nurse Practitioner Family; Visit Provider Nurse Practitioner Family
DX: J45.40 Moderate persistent asthma, uncomplicated (principal); Z13.29 Encounter for screening for other suspected endocrine disorder; Z13.220 Encounter for screening for lipoid disorders
CPT/HCPCS: 36415; 80053; 80061; 84443; 85027

== ENCOUNTER → 2023-05-19 | Outpatient (CLI) | payer BC, SELFPAY ==
--- NOTE | 2023-05-19 08:47 | BI_ITS ---
MAMMOGRAPHY - BILATERAL DIAGNOSTIC REASON FOR EXAM: Female, 33 years old. 3 month history of a palpable lump in the inferior medial aspect of the right breast. PERTINENT HISTORY: Non-contributory. TECHNIQUE: Digital bilateral breast vaughn (3D mammographic acquisition) in the CC and MLO projections. 2-D mediolateral oblique (MLO) and craniocaudad (CC) views of both breasts were obtained. CAD: Full Field Digital Mammography with Computer Added Detection was performed. COMPARISON: None. Baseline examination. FINDINGS: Breast Composition: The breasts are extremely dense, which lowers the sensitivity of mammography. There are no dominant masses or suspicious calcifications. No other significant abnormalities are identified. BI/DIAG MAMM W/CAD, BILAT IMPRESSION: Negative diagnostic mammogram. With the patient''s history of a palpable lump in the right breast, targeted sonographic correlation recommended. ASSESSMENT CATEGORY: BIRADS Category 0: Incomplete. Need additional imaging evaluation. A letter regarding these results will be sent to the patient by the facility within 30 days. Approximately 10% of breast cancers are not detected by mammography. A normal mammogram should not delay biopsy of a clinically suspicious abnormality. Electronically Signed: Joseph Crawley MD at 10:15 EDT ,
--- NOTE | 2023-05-19 08:48 | US_ITS ---
STUDY: ULTRASOUND BREAST - RIGHT REASON FOR EXAM: Female, 33 years old. Palpable lump in the inferior medial aspect of the left breast. TECHNIQUE: Axial and longitudinal images of the RIGHT breast were performed with a high resolution ultrasound transducer. # OF IMAGES: 5 COMPARISON: Comparison is made with prior mammogram done earlier today. FINDINGS: RIGHT Breast: The inferior medial aspect of the right breast was examined with ultrasound. There is a 1.1 cm x 0.8 cm x 0.6 cm well-defined hypoechoic echoic nodular density with a central hilum of increased density suggestive of a benign-appearing lymph node. US/Breast Limited Unilateral IMPRESSION: Findings suggestive of a 1.1 cm x 0.8 cm x 0.6 cm benign-appearing lymph node at the 4:00 position the breast at 8 cm from the nipple. ASSESSMENT CATEGORY: BIRADS Category 2: Benign. A letter regarding these results will be sent to the patient by the facility within 30 days. Electronically Signed: Joseph Crawley MD at 19:10 EDT ,
== END | disposition home or self-care (01) ==
LOC: OPBI 08:45
PROVIDERS: PCP Nurse Practitioner Family; Referring Provider Nurse Practitioner Family; Visit Provider Nurse Practitioner Family
DX: N63.10 Unspecified lump in the right breast, unspecified quadrant (principal)
CPT/HCPCS: 76642; 77062; 77066; G0279

== ENCOUNTER → 2023-09-10 | Outpatient (CLI) | payer BC, SELFPAY ==
[2023-09-10 07:33] LABS: Absolute Lymphocyte Count 2.19 X10^3/uL (0.83-4.51); Absolute Neutrophil Count 3.3 X10^3/uL (2.0-7.7); Basophil# 0.03 X10^3/uL; Basophil% 0.5 % (0-1); Eosinophil# 0.09 X10^3/uL; Eosinophils% 1.5 % (0-5); Hematocrit 39.4 % (37-47); Lymphocyte # 2.19 X10^3/ul (0.83-4.51); Lymphocyte % 35.7 % (19-41); Mean Corpuscular Hgb 29.7 pg (27.0-32.0); Mean Platelet Vol. 9.7 fl (6.2-12.0); Monocyte# 0.54 X10^3/uL; Monocyte% 8.8 % (0-10); NRBC Flagged by Analyzer 0 % (0-5); Neutrophil # 3.27 X10^3/uL (2.7-7.7); Neutrophil % 53.3 % (47-70); Platelet Count 227 K/mm3 (150-450); RBC Distribution Width CV 11.6 % (11.6-14.6); RBC Distribution Width SD 37.6 fl (35.1-43.9); Red Blood Count 4.38 M/mm3 (4.2-5.4); White Blood Count 6.1 K/mm3 (4.4-11.0)
[2023-09-10 07:35] LABS: Prothrombin Time (Protime)PT. 13.6 SECONDS (11.7-14.9)
[2023-09-10 08:09] LABS: ALB/GLOB Ratio 1.1 RATIO (0.9-2.4); AST(SGOT) 24 U/L (15-37); Alanine Aminotransfer ALT/SGPT 28 U/L (13-56); Albumin, Serum 3.6 g/dL (3.2-5.0); Alkaline Phosphatase 52 U/L (45-117); Anion Gap 6 (5-15); BUN 11 mg/dL (7-18); BUN/Creat Ratio 14.5 RATIO (10-20); CPK Total, Creatine Kinase 50 U/L (26-192); Chloride 106 mmol/L (98-107); Creatinine, Serum 0.76 mg/dL (0.55-1.02); EST Glomerular Filtration Rate 94 mL/min (>60); Est Glom Filt Rate - Afr Amer 114 mL/min (>60); Globulin 3.3 g/dL (2.2-4.2); Glucose 111 mg/dL (74-106); Iron 64 ug/dL (50-170); Iron Binding Capacity,Total 334 ug/dL (250-450); PERCENT IRON SATURATION 19.2 % (15.0-55.0); Potassium 3.9 mmol/L (3.5-5.1); Protein, Total 6.9 g/dL (6.4-8.2); Sodium Level 138 mmol/L (136-145)
[2023-09-10 08:21] LABS: Vitamin B12 189 pg/mL (211-911); Vitamin D,25 Hydroxy 27.3 ng/mL
== END | disposition home or self-care (01) ==
LOC: LAB 07:07
PROVIDERS: PCP Nurse Practitioner Family; Referring Provider Nurse Practitioner Family; Visit Provider Nurse Practitioner Family
DX: T14.8XXA Other injury of unspecified body region, initial encounter (principal); M79.10 Myalgia, unspecified site; X58.XXXA Exposure to other specified factors, initial encounter
CPT/HCPCS: 36415; 80053; 82306; 82550; 82607; 83540; 83550; 85025; 85610

== ENCOUNTER → 2023-11-20 | Outpatient (CLI) | payer BC, SELFPAY ==
[2023-11-20 09:06] LABS: Erythrocyte Sedimentation Rate 5 mm/hr (0-30)
[2023-11-20 09:10] LABS: CRP < 2.90 mg/L (0.0-3.0)
[2023-11-24 09:09] LABS: Anti-Centromere B Ab <0.2 AI (0.0-0.9); Anti-Chromatin <0.2 AI (0.0-0.9); Anti-Jo <0.2 AI (0.0-0.9); Anti-Scleroderma-70 AB <0.2 AI (0.0-0.9); Anti-dsDNA Ab <1 IU/mL (0-9); Beef <0.10 kU/L (Class 0); Chocolate <0.10 kU/L (Class 0); Codfish <0.10 kU/L (Class 0); Corn <0.10 kU/L (Class 0); Egg, Whole <0.10 kU/L (Class 0); Milk (Cow) <0.10 kU/L (Class 0); Mussels <0.10 kU/L (Class 0); Peanut <0.10 kU/L (Class 0); Pork <0.10 kU/L (Class 0); RNP Ab <0.2 AI (0.0-0.9); SJOGREN'S Anti-SS-A test < 0.2 AI (0.0-0.9); SJOGREN'S Anti-SS-B test < 0.2 AI (0.0-0.9); Salmon <0.10 kU/L (Class 0); Shrimp <0.10 kU/L (Class 0); Smith Ab <0.2 AI (0.0-0.9); Soybean <0.10 kU/L (Class 0); Tuna <0.10 kU/L (Class 0); Wheat <0.10 kU/L (Class 0)
[2023-11-29 10:07] LABS: ACCA 33 units (0-90); ALCA 6 units (0-60); AMCA 29 units (0-100); Albumin 4.2 g/dL (2.9-4.4); Alpha-1-Globulins 0.2 g/dL (0.0-0.4); Alpha-2-Globulins 0.6 g/dL (0.4-1.0); Cytoplasmic Ab (C-ANCA) <1:20 titer (Neg:<1:20); Endomysial Antibody IgA Negative (Negative); Gamma Globulin 1.2 g/dL (0.4-1.8); Immunoglobulin A 272 mg/dL (87-352); Immunoglobulin E 89 IU/mL (6-495); Immunoglobulin G 1179 mg/dL (586-1602); Immunoglobulin M 185 mg/dL (26-217); PROEL- TOTAL PROTEIN 7.1 g/dL (6.0-8.5); Perinuclear Ab (P-ANCA) <1:20 titer (Neg:<1:20); gASCA 29 units (0-50); t-Transglutaminase IgA <2 U/mL (0-3)
== END | disposition home or self-care (01) ==
LOC: LAB 08:20
PROVIDERS: PCP Nurse Practitioner Family; Referring Provider Student in an Organized Health Care Education/Training Program; Visit Provider Student in an Organized Health Care Education/Training Program
DX: R10.9 Unspecified abdominal pain (principal)
CPT/HCPCS: 36415; 82784; 82785; 83516; 84165; 85652; 86003; 86005; 86036; 86140; 86225; 86235; 86255; 86256; 86334; 86671

== ENCOUNTER 2023-12-21 05:28 | Day surgery (SDC) | payer BC, SELFPAY ==
[2023-12-21] VITALS (9 sets, daily range): BP systolic 89–123; BP diastolic 48–84; PULSE 79–85; RESP 16–18; TEMP 36.1–36.4; O2SAT 95–100; BMI 29.8
--- NOTE | 2023-12-21 | GASB_PTH ---
PATIENT: TYRA KINGSTON LOC: EN U#:[id number] AGE/SX: 33/F ROOM: RE12/21/[address]: Dr. Leon English DO : 1990 BED: DIS: 12/21/2023 SPEC #: [id number] RECD: 12/21/23 13:11 STATUS: GAVIN REEnder #: [id number] ANNA: 12/21/23 00:[address]: Leon English DEPT: SURGICAL PATHOLOGY RECD BY: Jaguar Kaur ENTERED: 12/21/23 13:11 SP TYPE: Gastric Bx OTHR DR: Kalli Solorio, BUTCHER HELPER-C Tissues: A - Duodenum, NOS B - Gastric mucous membrane C - Ileum, NOS D - COLON BIOPSY Procedures: Surgery Specimen Level IV HEADER OPERATION: Colonoscopy with biopsy, EGD with biopsy PRE-OP DIAGNOSIS: GERD, abdominal pain constipation TISSUE SUBMITTED: A- Duodenal biopsy, B- Gastric antrum biopsy, C- Terminal ileum biopsy, D- Random colon biopsy MICROSCOPIC DIAGNOSIS A. Duodenal biopsy: Fragments of duodenal mucosa, no pathologic diagnosis. B. Gastric antrum, biopsy: Mild gastritis. See microscopic description and comment. C. Terminal ileum, biopsy: Fragments of small intestinal mucosa, no pathologic diagnosis. See comment. D. Colon, random biopsy: Fragments of colonic mucosa, no pathologic diagnosis. 12/22/2023 COMMENT B. The results of immunohistochemistry for Helicobacter pylori will be reported separately ([id number]). C. Prominent benign lymphoid aggregates are noted. MICROSCOPIC DESCRIPTION Slides are reviewed. B. The specimen shows fragments of gastric mucosa with chronic inflammatory cell infiltrates in the lamina propria consisting of lymphocytes and plasma cells, consistent with mild chronic gastritis. GROSS DESCRIPTION A. Received in fixative is one container labeled with the patient's name and designated Duodenal biopsy. The specimen consists of multiple irregular fragments of light almeida soft tissue that in aggregate measure 1.0 x 0.5 x 0.1 cm. The specimen is totally submitted in one cassette. B. Received in fixative is one container labeled with the patient's name and designated Gastric antrum biopsy. The specimen consists of two irregular fragments of light almeida soft tissue that in aggregate measure 0.6 x 0.4 x 0.1 cm. The specimen is totally submitted in one cassette. C. Received in fixative is one container labeled with the patient's name and designated Terminal ileum biopsy. The specimen consists of multiple irregular fragments of light almeida soft tissue that in aggregate measure 0.8 x 0.6 x 0.1 cm. The specimen is totally submitted in one cassette. D. Received in fixative is one container labeled with the patient's name and designated Random colon biopsy. The specimen consists of multiple irregular fragments of light almeida soft tissue that in aggregate measure 1.0 x 0.5 x 0.1 cm. The specimen is totally submitted in one cassette. SJ 12/21/2023 TC:3 CPT:53138c0
--- NOTE | 2023-12-21 05:43 | PCM.PRE.AN2 ---
ASA Classification* ASA Classification ASA Classification: 2 Assessment & Plan Anesthesia* Anesthesia Assessment Anesthesia Assessment: Discussed sedation and/or anesthesia options, risks, benefits, and alternatives with patient/parents/legal guardian/POA. Questions invited. The patient/parents/legal guardian/POA seems to understand and agrees to proceed with anesthesia plan. Reviewed the physical assessment, medical history, allergy history and patient home medications list prior to surgery/procedure/anesthetic and documented any changes. Performed airway and anesthesia risk assessments. Anesthesia Type Anesthesia Type: MAC (see written pre anesthesia record for full assessment) Anesthesia Focused Assessment* Airway Assessment Mouth opens: >3 cm Mallampati Score: II Focused Labs Anesthesia Preop lab: CBC WBC 6.1 K/mm3 (4.4-11.0) 09/10/23 07:10 RBC 4.38 M/mm3 (4.2-5.4) 09/10/23 07:10 Hgb 13.0 g/dL (12.0-15.0) 09/10/23 07:10 Hct 39.4 % (37-47) 09/10/23 07:10 Plt Count 227 K/mm3 (150-450) 09/10/23 07:10 CHEMISTRY Potassium 3.9 mmol/L (3.5-5.1) 09/10/23 07:10 Sodium 138 mmol/L (136-145) 09/10/23 07:10 BUN 11 mg/dL (7-18) 09/10/23 07:10 Creatinine 0.76 mg/dL (0.55-1.02) 09/10/23 07:10 Glucose 111 mg/dL (74-106) H 09/10/23 07:10 TSH 2.54 uIU/mL (0.358-3.74) 03/11/23 07:03 COAG PT 13.6 SECONDS (11.7-14.9) 09/10/23 07:10 Pre-Assessment Diagnosis/Proposed Procedure Planned Operative Procedure(s): EGD CSCOPE Anesthesia History Anesthesia History - lay out technician: Anesthesia History - lay out technician Hx Hospitalization No 12/11/23 10:26 Any Problems With Anesthesia No 12/11/23 10:26 Cholinesterase deficiency No 12/11/23 10:26 You/Your Family Experience No 10/11/24 10:26 fever (hyperthermia) with Relationship Recent Exposure to Contagious Disease Does patient have nerve No 12/11/23 10:26 stimulator Patient instructed to have device shut off --Does patient have Pacemaker or ICD? When Was Last Pacemaker Check QUESTION #4 FULL TEXT: You/Your Family Experience fever (hyperthermia) with Anesthesia Last Oral Intake Last Oral intake: Last Oral Intake NPO since Meds taken in AM with sips of water? Meds patient instructed to take am of surgery PONV PONV - lay out technician: PONV - lay out technician Female Yes 12/11/23 10:26 HX of Motion Sickness Yes 12/11/23 10:26 HX of N/V After Surgery No 12/11/23 10:26 Non-Smoker Yes 12/11/23 10:26 Duration of Surgery greater No 12/11/23 10:26 than 60 minutes Number of Risk Factors 3 12/11/23 10:26 PONV Score Moderate Risk 12/11/23 10:26 Height & Weight Height & Weight: Anesthesia: Height & Weight Height 5 ft 11 in 10/18/21 13:46 Respiratory Assessment Respiratory Assessment - lay out technician: Respiratory Tract Infection Hx - lay out technician Hx Respiratory Tract Infection No 12/11/23 10:26 STOP Sleep Apnea STOP Sleep Apnea - lay out technician: STOP Sleep Apnea - lay out technician Hx Hypertension No 12/11/23 10:26 Hx Sleep Apnea No 12/11/23 10:26 CPAP BIPAP Do you snore loudly (louder No 12/11/23 10:26 than talking or can be heard Do you often feel tired/ No 12/11/23 10:26 fatigued/ sleepy during daytime? Has anyone observed you stop No 12/11/23 10:26 breathing during sleep? STOP Results Negative 12/11/23 10:26 QUESTION #5 FULL TEXT : Do you snore loudly (louder than talking or can be heard through closed doors)? Tobacco Use History Tobacco Use History - lay out technician: Tobacco Use History - lay out technician Tobacco Use Smoking Status Never smoker 12/11/23 10:26 Hx Tobacco Use No 12/11/23 10:26 Years Smoking Packs Smoked per Day Smoking Cessation Date was within the last 15 years Hx Smoking Cessation Date Hx Smoking Cessation Counseling Hematologic Medial History Hematologic Hx - lay out technician: Hematologic Medical Hx - sap data analyst Hx of Blood Transfusion No 12/11/23 10:26 Hx of Transfusion in last 3 No 12/11/23 10:26 Months Date of Last Transfusion (if within last 3 months) Ever experience any problems No 12/11/23 10:26 with transfusion(s)? Specify any problems Hx of Preganancy in last 3 N/A 12/11/23 10:26 Months Nurse Filling Out Transfusion NBUCHER 12/11/23 10:26 & Questions: Date: 12/11/23 12/11/23 10:26 Time: 12/11/23 10:26 Patient unable to answer at this time (ie. confused, unrespo /Reproduction History /Reproductive History - lay out technician: /Reproductive Hx- lay out technician Hx Now No 12/11/23 10:26 Gestational Age (in weeks): EDC: Hx Hx Para Hx Section SAB No 12/11/23 10:26 [facility] Medical History Wears glasses Alcohol use Easy bruising GERD (gastroesophageal reflux disease) Non-smoker Asthma Chronic cough History of echocardiogram Mitral valve prolapse Right bundle branch block (RBBB) Contact with and (suspected) exposure to other viral communicable diseases Acute pharyngitis, unspecified Home Medications ?Medication ?Instructions ?Recorded ?Last Taken ?Type albuterol sulfate 2.5 mg/3 mL 1.25 mg inhalation ONCE 10/18/21 Unknown History (0.083 %) solution for nebulization cholecalciferol (vitamin D3) 25 25 mcg PO QDAY 11/20/23 Unknown History mcg (1,000 unit) capsule epinephrine 0.3 mg/0.3 mL 0.3 mg IM ONCE PRN anaphylaxis 11/20/23 Unknown History injection, auto-injector famotidine 40 mg tablet 40 mg PO QHS 11/20/23 Unknown History levocetirizine 5 mg tablet (Xyzal) 5 mg PO QDAY 11/20/23 Unknown History meclizine 25 mg tablet 25 mg PO QDAY PRN dizziness 11/20/23 Unknown History mecobalamin (vitamin B12) 500 mcg 500 mcg PO DAILY 11/20/23 Unknown History chewable tablet melatonin 5 mg capsule 5 mg PO QHS 11/20/23 Unknown History montelukast 10 mg tablet 10 mg PO QDAY 11/20/23 Unknown History pantoprazole 20 mg tablet,delayed 20 mg PO QDAY #30 tabs 11/20/23 Unknown Rx release fluticasone 250 mcg-salmeterol 50 1 ea inhalation BID 12/11/23 Unknown History mcg/dose blistr powdr for inhalation (Wixela Inhub) ondansetron 4 mg disintegrating 4 mg PO Q8H PRN nausea and vomiting 12/11/23 Unknown History tablet tiotropium bromide 1.25 2 puff inhalation DAILY 12/11/23 Unknown History mcg/actuation mist for inhalation (Spiriva Respimat) Allergy/AdvReac Type Severity Reaction Status Date / Time No Known Allergies Allergy Verified 12/11/23 10:23 Social History Smoking Status: Never smoker Review of Systems (Anesthesia) ROS Narrative System reviewed and no additional complaints, except as documented.
[2023-12-21 06:00] LABS: Internal QC Validated? YES +Cl - CLEAR BKGD; Pregnancy, Urine Negative Negative; Record Kit Lot#,Urine Preg 869294
--- NOTE | 2023-12-21 06:30 | IMM_PTH ---
PATIENT: TYRA KINGSTON LOC: EN U#:[id number] AGE/SX: 33/F ROOM: RE12/21/[address]: Dr. Leon English DO : 1990 BED: DIS: 12/21/2023 SPEC #: [id number] RECD: 12/21/23 14:27 STATUS: GAVIN REQ #: [id number] ANNA: 12/21/23 06:[address]: Leon English DEPT: IMMUNOHISTOCHEMISTRY RECD BY: Riki Quiroz ENTERED: 12/21/23 14:27 SP TYPE: IMMUNO OTHR DR: Kalli Solorio, MICROMATIC HONE OPERATOR-C Tissues: B - Gastric mucous membrane Procedures: H Pylori (initial) PHYSICIAN & INSTITUTION [place] [id number] SPECIMEN INFORMATION: Tissue Source: B- Gastric antrum Clinical Info: GERD, abdominal pain, constipation Specimen Number: [id number] CPT code: 75830 METHODOLOGY: Deparaffinized sections of prefer/formalin-fixed tissue or PAP/DQ stained slides are incubated with monoclonal/polyclonal antibodies/oligonucleotide probes. Localization is made via biotin free immunoperoxidase method. Appropriate controls are performed and reacted as expected. Results on target cell population are indicated in the following table: RESULTS: ANTIBODY / CLONE RESULT Block B H Pylori (polyclonal) negative These tests were developed and their performance characteristics determined by [facility]. They may not have been cleared or approved by the U.S. Food and Drug Administration. The FDA has determined that such clearance or approval is not necessary. The above immunohistochemical/dualISH markers are ordered and reviewed by the Pathologist. INTERPRETATION: B. Gastric antrum, biopsy: Negative for Helicobacter pylori organisms. 12/22/2023
--- NOTE | 2023-12-21 06:47 | HP.PCM_ITS ---
History and Physical Date of Admission: 12/21/23 TYRA KINGSTON, is a 33 F who presents to the office today for establishment with [facility]. Patient is a 33 yo female with extensive family hx of colon cancer. She has no intermediate family members with colon cancer. For as long as she can remember she has had constipation and occasional diarrhea. She has about 2-3 bm per week. Recently she has noticed some bright red blood streaking in her stools. She has daily nausea and heartburn. She was taking omeprazole for about 2 months but during the third month she noticed worsening nausea with eructation so she stopped it. Now she does famotidine at night which is helpful during the night but not during the day. During the day she will take Pepto and meclizine which is helpful but ENT said she should stop taking so much meclizine. She has identified that sugary foods worsen her symptoms. She did an elimination diet with diary and wheat and did not notice much of a difference. She denies ever having EGD, colonoscopy or GI work up. ROS Const Constitutional: No fatigue, fever(s) or weight change ENT ENT: No difficulty swallowing Gastro GI: Positive for abdominal pain, bloating, constipation, heartburn, excessive flatus, Blood in stool and nausea/dyspepsia; No belching, change in bowel habits, change in stool character, coffee ground emesis, cramping, diarrhea, difficulty swallowing, feeling full early, incontinent of stools, Vomiting blood/hematemesis, loose stools, Black,tarry stools, pain with swallowing, vomiting or other Musc Musculoskeletal: Positive for joint pain and back pain Skin Skin: No yellowing of the eye or itchy eyes Psych Psychiatric: No anxiety and No depression Endo Endocrine: No fatigue or weight change Aller/Imm Allergy/Immunologic: No itchy eyes Jah/Lymp Hematologic/Lymphatic: Positive for easy bruising; No easy bleeding Exam Const General: cooperative and comfortable Nutritional Appearance: average body habitus and well nourished [facility] Head: normal to inspection Ears: hearing grossly normal bilaterally Nose: external nose normal Face and sinus: normal facial exam Eyes General: appearance normal, both eyes and all related structures Neck Neck: normal visual inspection Chest Chest palpation & inspection: normal inspection of the chest Resp Effort & Inspection: normal respiratory effort GI Inspection: normal to inspection Skin General: no rashes or lesions noted Neuro General: patient alert Extrem General: normal to inspection Psych Affect: normal affect Assessment and Plan Assessment and Plan (1) Gastroesophageal reflux disease: Plan: Pt is a 33 yo female with PMHx of seasonal allergies, GERD, constipation and family hx of colon cancer. She is here today for establishment with [facility] for concerns regarding refractory heartburn, nausea and constipation. SHe has been on a course of omeprazole 20mg daily for about 2 months but symptoms worsened and she discontinued it. I recommended we get an EGD to evaluate her esophagus. We will rule out EOE as she has some problems with food feeling stuck as well as seasonal allergies and asthma. I suggested we re start her on PPI therapy with a drug she has not tried yet. Pantoprazole ordered. I also prescribed Zofran for her daily nausea. We may need to consider GES in the future as she has nausea, bloating and heartburn. In regards to the constipation, I will order blood work to rule out food allergy or autoimmune conditions. It does not appear to be IBD as she has no alarm symptoms. She will undergo colonoscopy as she has extensive family hx of colon cancer and constipation. She will f/u in 3 months and I will call in the meantime to discuss findings. She is agreeable to this plan. -EGD and colonoscopy -Prescribed pantoprazole and Zofran -IBD panel, celiac, ESR, CRP and food allergen panel ordered -She will f/u in 3 months (2) Abdominal pain: Status: Acute (3) Constipation: Status: Acute Orders: Orders JOAQUÍN + Protein Elect, Serum Today R10.9 - Unspecified abdominal pain IBD Expanded Profile Today R10.9 - Unspecified abdominal pain Erythrocyte Sed Rate Today R10.9 - Unspecified abdominal pain CRP Today R10.9 - Unspecified abdominal pain Allergen, Food Profile 14 Today R10.9 - Unspecified abdominal pain Celiac Disease Profile Today R10.9 - Unspecified abdominal pain EMILY Comprehensive Panel Today R10.9 - Unspecified abdominal pain ANCA Today R10.9 - Unspecified abdominal pain Immunoglobulins G/A/M/E Today R10.9 - Unspecified abdominal pain Medications: New ondansetron 4 mg PO Q8H 20 tabs 3RF pantoprazole 20 mg PO QDAY 30 tabs 3RF I have examined the patient and the H&P has been reviewed. There are no clinical changes since date of exam.
--- NOTE | 2023-12-21 07:35 | PCM.POST.ANE ---
Anesthesia: Postop Eval I Current Vital Signs Temperature: 97 F Pulse Rate: 82 Blood Pressure: 109/65 Respiratory Rate: 16 Pulse Ox: 97 Oxygen Delivery Method: Room Air Assessment Airway patent: Yes Spontaneous unlabored respirations: Yes Mental status: Asleep nausea: No Vomiting: No Anesthesia Complication: No Fluid Hydration Crystalloid volume administer (ml): 60 Total IV fluid infused: 60 Progress Note Anesthesia document: Postop Eval 1 completed: Yes
--- NOTE | 2023-12-21 07:46 | POSTOPAN2_ITS ---
Anesthesia Postop Eval I Sum Postop Eval Completion status Anesthesia document: Postop Eval 1 completed: Yes Anesthesia Postop Eval I Summary Anesthesia Postop Eval I Summary: Anesthesia Postop Eval I: Assessment Summary Airway patent Yes 12/21/23 07:46 DIFFUSION FURNACE OPERATOR.MDOT Spontaneous unlabored Yes 12/21/23 07:46 DIFFUSION FURNACE OPERATOR.MDOT respirations Mental status Awake,Calm 12/21/23 07:46 DIFFUSION FURNACE OPERATOR.MDOT nausea No 12/21/23 07:46 DIFFUSION FURNACE OPERATOR.MDOT Vomiting No 12/21/23 07:46 DIFFUSION FURNACE OPERATOR.MDOT Anesthesia Postop Eval I: Fluid Summary Crystalloid volume administer 20 12/21/23 07:46 DIFFUSION FURNACE OPERATOR.MDOT (ml) Colloids volume administered ( ml) Blood Product volume administered (ml) Total IV fluid infused 20 12/21/23 07:46 DIFFUSION FURNACE OPERATOR.MDOT Anesthesia Postop Eval I: Summary Notes Anesthesia Complication No 12/21/23 07:46 DIFFUSION FURNACE OPERATOR.MDOT Anesthesia Complication Comment: Post-operative progress note Anesthesia: Postop Eval II Evaluation Mental status: Awake and Calm Pain Level: 0 nausea: No Vomiting: No Complications Anesthesia Complication: No
--- NOTE | 2023-12-21 07:46 | PCM.POST.ANE ---
Anesthesia: Postop Eval I Current Vital Signs Temperature: 97.2 F Pulse Rate: 85 Blood Pressure: 93/48 Respiratory Rate: 16 Pulse Ox: 97 Oxygen Delivery Method: Room Air Assessment Airway patent: Yes Spontaneous unlabored respirations: Yes Mental status: Awake and Calm nausea: No Vomiting: No Anesthesia Complication: No Fluid Hydration Crystalloid volume administer (ml): 20 Total IV fluid infused: 20 Progress Note Anesthesia document: Postop Eval 1 completed: Yes
--- NOTE | 2023-12-21 07:46 | PCM.POSTANE2 ---
Anesthesia Postop Eval I Sum Postop Eval Completion status Anesthesia document: Postop Eval 1 completed: Yes Anesthesia Postop Eval I Summary Anesthesia Postop Eval I Summary: Anesthesia Postop Eval I: Assessment Summary Airway patent Yes 12/21/23 07:46 MIRROR INSTALLER.MDOT Spontaneous unlabored Yes 12/21/23 07:46 MIRROR INSTALLER.MDOT respirations Mental status Awake,Calm 12/21/23 07:46 MIRROR INSTALLER.MDOT nausea No 12/21/23 07:46 MIRROR INSTALLER.MDOT Vomiting No 12/21/23 07:46 MIRROR INSTALLER.MDOT Anesthesia Postop Eval I: Fluid Summary Crystalloid volume administer 20 12/21/23 07:46 MIRROR INSTALLER.MDOT (ml) Colloids volume administered ( ml) Blood Product volume administered (ml) Total IV fluid infused 20 12/21/23 07:46 MIRROR INSTALLER.MDOT Anesthesia Postop Eval I: Summary Notes Anesthesia Complication No 12/21/23 07:46 MIRROR INSTALLER.MDOT Anesthesia Complication Comment: Post-operative progress note Anesthesia: Postop Eval II Evaluation Mental status: Awake and Calm Pain Level: 0 nausea: No Vomiting: No Complications Anesthesia Complication: No
--- NOTE | 2023-12-21 15:27 | OP.CCLET_ITS ---
12/21/2023 Andrew Roper Re : Colonoscopy procedure for Kallie Jasmine Dear Lyndsey This procedure was performed on Thursday, December 21, 2023. My impressions and recommendations are as follows: Impressions : - Congested mucosa in the recto-sigmoid colon, in the sigmoid colon and in the cecum. Biopsied. - Friability with no bleeding in the distal ileum and in the terminal ileum. Biopsied. Recommendations : - Discharge patient to home. - Resume previous diet. - Continue present medications. - Await pathology results. - Repeat colonoscopy in 5 years for surveillance. My findings are described in the full procedure note, which is enclosed. If I can be of further assistance, please feel free to contact me at . Sincerely, Leon English, 12/21/2023 7:29:31 AM This report has been signed electronically.
--- NOTE | 2023-12-21 15:27 | OP.COLON_ITS ---
Patient Name: Kallie Jasmine Procedure Date: 12/21/2023 7:02 AM Date of : 1990 Age: 33 Procedure: Colonoscopy Indications: Screening patient at increased risk: Family history of colorectal cancer in multiple 1st-degree relatives, This is the patient's first colonoscopy Providers: Leon English DO Medicines: Monitored Anesthesia Care Patient Profile: This is a 33 year old female. Refer to note in patient chart for documentation of history and physical. Patient has symptoms of chronic epigastric abdominal pain, chronic dyspepsia and chronic nausea. Last Colonoscopy: none. The patient's first colonoscopy is today. Complications: No immediate complications. Procedure: Pre-Anesthesia Assessment: - Prior to the procedure, a History and Physical was performed, and patient medications and allergies were reviewed. The patient is competent. The risks and benefits of the procedure and the sedation options and risks were discussed with the patient. All questions were answered and informed consent was obtained. Patient identification and proposed procedure were verified by the physician in the pre-procedure area. Mental Status Examination: alert and oriented. Airway Examination: normal oropharyngeal airway and neck mobility. Respiratory Examination: clear to auscultation. CV Examination: normal. Prophylactic Antibiotics: The patient does not require prophylactic antibiotics. Prior Anticoagulants: The patient has taken no anticoagulant or antiplatelet agents except for NSAID medication. ASA Grade Assessment: II - A patient with mild systemic disease. After reviewing the risks and benefits, the patient was deemed in satisfactory condition to undergo the procedure. The anesthesia plan was to use monitored anesthesia care (MAC). Immediately prior to administration of medications, the patient was re-assessed for adequacy to receive sedatives. The heart rate, respiratory rate, oxygen saturations, blood pressure, adequacy of pulmonary ventilation, and response to care were monitored throughout the procedure. The physical status of the patient was re-assessed after the procedure. After I obtained informed consent, the scope was passed under direct vision. Throughout the procedure, the patient's blood pressure, pulse, and oxygen saturations were monitored continuously. The colonoscope was introduced through the anus and advanced to the terminal ileum. The colonoscopy was performed without difficulty. The patient tolerated the procedure well. The quality of the bowel preparation was adequate. The terminal ileum, ileocecal valve, appendiceal orifice, and rectum were photographed. Scope In: 7:03:48 AM Scope Withdrawal Time 0 hours 8 minutes 9 seconds Scope Out: 7:14:38 AM Total Procedure Duration Time 0 hours 10 minutes 50 seconds Findings: The perianal and digital rectal examinations were normal. An area of mildly congested mucosa was found in the recto-sigmoid colon, in the sigmoid colon and in the cecum. Biopsies were taken with a cold forceps for histology. Verification of patient identification for the specimen was done. Estimated blood loss was minimal. A patchy area of mucosa in the distal ileum and terminal ileum was mildly friable with no bleeding. Biopsies were taken with a cold forceps for histology. Verification of patient identification for the specimen was done. Estimated blood loss was minimal. Impression: - Congested mucosa in the recto-sigmoid colon, in the sigmoid colon and in the cecum. Biopsied. - Friability with no bleeding in the distal ileum and in the terminal ileum. Biopsied. Recommendation: - Discharge patient to home. - Resume previous diet. - Continue present medications. - Await pathology results. - Repeat colonoscopy in 5 years for surveillance. Procedure Code(s): --- Professional --- 42656, Colonoscopy, flexible; with biopsy, single or multiple CPT copyright 2021 [employer]. All rights reserved. The codes documented in this report are preliminary and upon tester electronic scale review may be revised to meet current compliance requirements. Leon English DO 12/21/2023 7:29:31 AM This report has been signed electronically. Number of Addenda: 0 Note Initiated On: 12/21/2023 7:02 AM
--- NOTE | 2023-12-21 15:27 | OP.EGD_ITS ---
Patient Name: Kallie Jasmine Procedure Date: 12/21/2023 6:31 AM Date of : 1990 Age: 33 Procedure: Upper GI endoscopy Indications: Epigastric abdominal pain, Functional Dyspepsia Providers: Leon English DO Medicines: Monitored Anesthesia Care Patient Profile: This is a 33 year old female. Refer to note in patient chart for documentation of history and physical. Patient has symptoms of chronic epigastric abdominal pain, chronic dyspepsia and chronic nausea. Complications: No immediate complications. Procedure: Pre-Anesthesia Assessment: - Prior to the procedure, a History and Physical was performed, and patient medications and allergies were reviewed. The patient is competent. The risks and benefits of the procedure and the sedation options and risks were discussed with the patient. All questions were answered and informed consent was obtained. Patient identification and proposed procedure were verified by the physician in the pre-procedure area. Mental Status Examination: alert and oriented. Airway Examination: normal oropharyngeal airway and neck mobility. Respiratory Examination: clear to auscultation. CV Examination: normal. Prophylactic Antibiotics: The patient does not require prophylactic antibiotics. Prior Anticoagulants: The patient has taken no anticoagulant or antiplatelet agents except for NSAID medication. ASA Grade Assessment: II - A patient with mild systemic disease. After reviewing the risks and benefits, the patient was deemed in satisfactory condition to undergo the procedure. The anesthesia plan was to use monitored anesthesia care (MAC). Immediately prior to administration of medications, the patient was re-assessed for adequacy to receive sedatives. The heart rate, respiratory rate, oxygen saturations, blood pressure, adequacy of pulmonary ventilation, and response to care were monitored throughout the procedure. The physical status of the patient was re-assessed after the procedure. After obtaining informed consent, the endoscope was passed under direct vision. Throughout the procedure, the patient's blood pressure, pulse, and oxygen saturations were monitored continuously. The colonoscope was introduced through the mouth, and advanced to the second part of duodenum. The upper GI endoscopy was accomplished without difficulty. The patient tolerated the procedure well. Scope In: 6:57:19 AM Scope Out: 7:02:26 AM Total Procedure Duration Time 0 hours 5 minutes 7 seconds Findings: The examined esophagus was normal. A small hiatal hernia was present. Bilious fluid was found in the gastric body. Localized mild inflammation characterized by erosions was found in the gastric antrum. Biopsies were taken with a cold forceps for histology. Verification of patient identification for the specimen was done. Estimated blood loss was minimal. Biopsies were taken with a cold forceps for Helicobacter pylori testing. Verification of patient identification for the specimen was done. Estimated blood loss was minimal. No gross lesions were noted in the second portion of the duodenum. Biopsies were taken with a cold forceps for histology. Verification of patient identification for the specimen was done. Estimated blood loss was minimal. Impression: - Normal esophagus. - Small hiatal hernia. - Bilious gastric fluid. - Bile gastritis. Biopsied. - No gross lesions in the second portion of the duodenum. Biopsied. Recommendation: - Discharge patient to home. - Resume previous diet. - Continue present medications. - Await pathology results. -Check folic acid levels, antiparietal cell antibodies, antiintrinsic factor antibodies Procedure Code(s): --- Professional --- 83886, Esophagogastroduodenoscopy, flexible, transoral; with biopsy, single or multiple CPT copyright 2021 [employer]. All rights reserved. The codes documented in this report are preliminary and upon see supervisor review may be revised to meet current compliance requirements. Leon English DO 12/21/2023 7:26:13 AM This report has been signed electronically. Number of Addenda: 0 Note Initiated On: 12/21/2023 6:31 AM
--- NOTE | 2023-12-21 15:27 | OP.CCLET_ITS ---
12/21/2023 Andrew Roper Re : Upper GI endoscopy procedure for Kallie Jasmine Dear Lyndsey This procedure was performed on Thursday, December 21, 2023. My impressions and recommendations are as follows: Impressions : - Normal esophagus. - Small hiatal hernia. - Bilious gastric fluid. - Bile gastritis. Biopsied. - No gross lesions in the second portion of the duodenum. Biopsied. Recommendations : - Discharge patient to home. - Resume previous diet. - Continue present medications. - Await pathology results. -Check folic acid levels, antiparietal cell antibodies, antiintrinsic factor antibodies My findings are described in the full procedure note, which is enclosed. If I can be of further assistance, please feel free to contact me at . Sincerely, Leon English, 12/21/2023 7:26:13 AM This report has been signed electronically.
== END 2023-12-21 08:00 | disposition home or self-care (01) ==
LOC: EN 05:29 → AC 05:30
PROVIDERS: Anesthesiology; PCP Nurse Practitioner Family; Referring Provider Nurse Practitioner Family; Visit Provider Internal Medicine Gastroenterology
PROC: 0DJD8ZZ Inspection of Lower Intestinal Tract, Via Natural or Artificial Opening Endoscopic (ICD-10-PCS; CPT 45378; principal; 2023-12-21 06:25)
DX: Z12.11 Encounter for screening for malignant neoplasm of colon (principal); K44.9 Diaphragmatic hernia without obstruction or gangrene; K21.9 Gastro-esophageal reflux disease without esophagitis; K29.70 Gastritis, unspecified, without bleeding; J45.909 Unspecified asthma, uncomplicated; K63.89 Other specified diseases of intestine; K31.89 Other diseases of stomach and duodenum; Z80.0 Family history of malignant neoplasm of digestive organs; Z79.51 Long term (current) use of inhaled steroids
CPT/HCPCS: 45380; 43239; 81025; 88305; 88342; A4216; J2405

== ENCOUNTER → 2024-02-17 | Outpatient (CLI) | payer BC, SELFPAY ==
[2024-02-20 08:09] LABS: Anti-Parietal Cell AB, QN 1.5 Units (0.0-20.0)
== END | disposition home or self-care (01) ==
LOC: LAB 07:32
PROVIDERS: PCP Nurse Practitioner Family; Referring Provider Student in an Organized Health Care Education/Training Program; Visit Provider Student in an Organized Health Care Education/Training Program
DX: K21.9 Gastro-esophageal reflux disease without esophagitis (principal)
CPT/HCPCS: 36415; 82746; 83516; 86340

== ENCOUNTER → 2024-02-18 | Outpatient (CLI) | payer BC, SELFPAY ==
--- NOTE | 2024-02-18 07:51 | NM_ITS ---
CLINICAL: 33-year-old female with history of chronic nausea. SEMI-SOLID PHASE 99m Tc SULFUR COLLOID GASTRIC EMPTYING STUDY COMPARISON: None available FINDINGS: The patient was administered 1.0 mCi of 99m Tc sulfur colloid mixed with oatmeal and consumed per os. Image acquisitions in the anterior-posterior projections were obtained for 60 minutes. There is prompt visualization of the stomach. There is no gastroesophageal reflux identified. The T ? raw data emptying was calculated to be 28.99 minutes, (Normal: 12-56 minutes). NM/Gastric Emptying Study IMPRESSION: 1. NORMAL 99m Tc sulfur colloid semi-solid phase (oatmeal) gastric emptying imaging examination. A. There is normal and preserved semi-solid phase gastric emptying compared to normal controls. (Jair et al, J Nucl Med Tech 38: 186, 2010). Electronically Signed: Dwayne Galindo DO at 8:32 EST ,
== END | disposition home or self-care (01) ==
LOC: NM 07:51
PROVIDERS: PCP Nurse Practitioner Family; Referring Provider Student in an Organized Health Care Education/Training Program; Visit Provider Student in an Organized Health Care Education/Training Program
DX: K21.9 Gastro-esophageal reflux disease without esophagitis (principal); R11.0 Nausea
CPT/HCPCS: 78264; A9541